=== PATIENT | male | born 1990 | race Caucasian/White ===

== ENCOUNTER 2023-07-05 09:41 | Emergency (ER) | payer BC ==
[~2023-07-05] VITALS: Ht 170.2 cm; Wt 81.6 kg
[2023-07-05 09:43] VITALS: BP 126/90; PULSE 65; RESP 18; TEMP 98.4; O2SAT 99
== END 2023-07-05 11:38 | disposition home or self-care (01) ==
LOC: ER 09:41
DX: S00.11XA Contusion of right eyelid and periocular area, initial encounter (principal); V49.88XA Car occupant (driver) (passenger) injured in other specified transport accidents, initial encounter; Y93.89 Activity, other specified; Y92.89 Other specified places as the place of occurrence of the external cause; Y99.8 Other external cause status
CPT/HCPCS: 70450; 99284; Z7610